=== PATIENT | male | born 1980 | race Caucasian/White ===

== ENCOUNTER 2016-06-13 09:45 | Emergency (ER) | payer SELFPAY ==
--- NOTE | 2016-06-13 10:02 | ER Document Report ---
ED Medical Screen (RME) - General Stated Complaint: CHEST PAIN Notes: Patient states he had chest pain last night which is resulted in her remaining chest tightness this morning. I greeted and performed a rapid initial assessment of this patient. Comprehensive ED assessment and evaluation of the patient, analysis of test results and completion of the medical decision making process will be conducted by additional ED providers. TRAVEL OUTSIDE OF THE [place] IN LAST 30 DAYS: No - Related Data Allergies/Adverse Reactions: No Known Allergies Allergy (Unverified 05/01/11 08:54) Past Medical History Past Surgical History: Reports: Hx Orthopedic Surgery - l elbow, r knee - Immunizations Hx Diphtheria, Pertussis, Tetanus Vaccination: Yes - 05/30/2008 Physical Exam - Vital signs Vitals: Temp Pulse Resp BP Pulse Ox 98.0 F 104 H 20 184/85 H 98 06/13/16 10:00 06/13/16 10:00 06/13/16 10:00 06/13/16 10:00 06/13/16 10:00 Course - Vital Signs Vital signs: Temp Pulse Resp BP Pulse Ox 98.0 F 104 H 20 184/85 H 98 06/13/16 10:00 06/13/16 10:00 06/13/16 10:00 06/13/16 10:00 06/13/16 10:00
--- NOTE | 2016-06-13 10:11 | EKG REPORT ---
SEVERITY:- NORMAL ECG - SINUS RHYTHM : Confirmed by: Alley Aguilar MD 13-Jun-2016 10:10:43
[2016-06-13] MEDS ORDERED: ASPIRIN 81 MG TABLET, CHEWABLE PO ONE (10:47)
[2016-06-13] MEDS ORDERED: NORMAL SALINE 1000 ML 1,000 ML IV ONE (10:48)
[2016-06-13 11:38] LABS: ABSOLUTE EOSINOPHILS # (AUTO) 0.1 10^3/uL (0.0-0.6); ABSOLUTE MONOCYTES (AUTO) 0.3 10^3/uL (0.1-1.4); ABSOLUTE NEUT (AUTO) 4.3 10^3/uL (1.7-8.2); BASOPHILS % (AUTO) 0.3 % (0-2); HEMOGLOBIN 13.5 g/dL (13.5-17.0); HGB HCT DIFFERENCE -2.5; LYMPHOCYTES % (AUTO) 29.5 % (13-45); MEAN CORPUSCULAR HEMOGLOBIN 25.4 pg (27.0-33.4); MEAN CORPUSCULAR HGB CONC 31.4 g/dL (32.0-36.0); MEAN CORPUSCULAR VOLUME 81 fl (80-97); MONOCYTES % (AUTO) 4.3 % (3-13); RED BLOOD COUNT 5.32 10^6/uL (4.35-5.55); RED CELL DISTRIBUTION WIDTH 14.3 % (11.5-14.0); SEGMENTED NEUTROPHILS % (AUTO) 64.9 % (42-78); WHITE BLOOD COUNT 6.6 10^3/uL (4.0-10.5)
[2016-06-13 11:42] LABS: APPEARANCE,URINE SLIGHTLY-CLOUDY; BILIRUBIN,URINE NEGATIVE (NEGATIVE); GLUCOSE, URINE NEGATIVE (NEGATIVE); KETONES,URINE NEGATIVE (NEGATIVE); LEUKOCYTE ESTERASE,URINE NEGATIVE (NEGATIVE); NITRITE,URINE NEGATIVE (NEGATIVE); PROTEIN,URINE NEGATIVE (NEGATIVE); URINE SPECIFIC GRAVITY 1.023; UROBILINOGEN,URINE NEGATIVE mg/dL (<2.0)
[2016-06-13 11:51] LABS: URINE BARBITURATES SCREEN NEGATIVE; URINE METHADONE SCREEN UNCONFIRMED POSITIVE; URINE PHENCYCLIDINE SCREEN NEGATIVE
[2016-06-13 12:02] LABS: ALANINE AMINOTRANSFERASE 36 U/L (21-72); ALBUMIN 3.9 g/dL (3.5-5.0); ALKALINE PHOSPHATASE 84 U/L (38-126); ANION GAP 13 (5-19); ASPARTATE AMINO TRANSFERASE 31 U/L (17-59); BILIRUBIN,TOTAL 0.3 mg/dL (0.2-1.3); BLOOD UREA NITROGEN 13 mg/dL (7-20); CALCIUM 9.7 mg/dL (8.4-10.2); CARBON DIOXIDE 28 mmol/L (22-30); CHLORIDE 99 mmol/L (98-107); CREATININE RESULT 0.78 mg/dL (0.52-1.25); GLUCOSE 193 mg/dL (75-110); SODIUM 140.3 mmol/L (137-145); TOTAL PROTEIN 7.4 g/dL (6.3-8.2)
--- NOTE | 2016-06-13 14:14 | ER Document Report ---
ED Cardiac - General Chief Complaint: Chest Pain Stated Complaint: CHEST PAIN Mode of Arrival: Ambulatory Information source: Patient Notes: 35-year-old male presents to the emergency department complaining of feeling of chest tightness, feeling like his heart is racing, and "jittery" reports onset of symptoms yesterday evening while he was eating supper. States episode improved during the night and began again this morning. Reports has been having similar episodes intermittently over the last month but states has not resolved since this morning. States usually when he has an episode he feels like his blood sugar is low, eats a candy bar, and symptoms resolve. Denies fever, chest pain, nausea or vomiting, diaphoresis, shortness of breath, recent illness or travel. TRAVEL OUTSIDE OF THE [place] IN LAST 30 DAYS: No - HPI Patient complains to provider of: Chest tightness, Palpitations Was the onset of pain: Sudden Quality of pain: Tightness Chest pain radiation location: None Severity now: None Severity at worst: Moderate Pain level currently: Denies Chest pain precipitating factors: At Rest Cardiac risk factors: None Positive cardiac history: No Similar symptoms previously: Yes Recently seen / treated by doctor: No - Related Data Allergies/Adverse Reactions: No Known Allergies Allergy (Verified 06/13/16 10:03) Past Medical History - General Information source: Patient - Social History Smoking Status: Never Smoker Chew tobacco use (# tins/day): No Frequency of alcohol use: None Drug Abuse: None Lives with: Family Family History: Reviewed & Not Pertinent Patient has suicidal ideation: No Patient has homicidal ideation: No - Medical History Medical History: Negative Renal/ Medical History: Denies: Hx Peritoneal Dialysis Past Surgical History: Reports: Hx Orthopedic Surgery - l elbow, r knee - Immunizations Hx Diphtheria, Pertussis, Tetanus Vaccination: Yes - 05/30/2008 Review of Systems - Review of Systems Constitutional: No symptoms reported EENT: No symptoms reported Cardiovascular: See HPI Respiratory: No symptoms reported Gastrointestinal: No symptoms reported Genitourinary: No symptoms reported Male Genitourinary: No symptoms reported Musculoskeletal: No symptoms reported Skin: No symptoms reported Hematologic/Lymphatic: No symptoms reported Neurological/Psychological: No symptoms reported -: Yes All other systems reviewed and negative Physical Exam - Vital signs Vitals: Temp Pulse Resp BP Pulse Ox 98.0 F 104 H 20 184/85 H 98 06/13/16 10:00 06/13/16 10:00 06/13/16 10:00 06/13/16 10:00 06/13/16 10:00 Interpretation: Normal - General General appearance: Appears well, Alert In distress: None - HEENT Head: Normocephalic, Atraumatic Eyes: Normal Pupils: PERRL - Respiratory Respiratory status: No respiratory distress Chest status: Nontender. No: Tender, Chest mass, Ecchymosis, No pleuritic chest pain, Pain on movement, Pain with cough, Pain with deep breathing, Wounds , Accessory muscle use, Prolonged expirations, Splinting, Other Breath sounds: Normal - CTAB Chest palpation: Normal - Cardiovascular Rhythm: Regular Heart sounds: Normal auscultation Murmur: No Pulses: Normal: Radial, Posterior tibial, Dorsalis pedis Normal capillary refill: Yes - Abdominal Inspection: Normal Distension: No distension Bowel sounds: Normal Tenderness: Nontender. No: Tender, McBurney's point, Ward's sign, Guarding, Rebound, Other Organomegaly: No organomegaly - Back Back: Normal, Nontender - Extremities General upper extremity: Normal inspection, Nontender, Normal color, Normal ROM , Normal strength, Normal temperature. No: Tender, Edema General lower extremity: Normal inspection, Nontender, Normal color, Normal ROM , Normal strength, Normal temperature, Normal weight bearing. No: Tender, Edema , [place]'s sign - Neurological Neuro grossly intact: Yes Cognition: Normal Orientation: AAOx4 Jessica Coma Scale Eye Opening: Spontaneous Jessica Coma Scale Verbal: Oriented [place] Coma Scale Motor: Obeys Commands [place] Coma Scale Total: 15 Speech: Normal Motor strength normal: LUE, RUE, LLE, RLE Sensory: Normal - Psychological Associated symptoms: Normal affect, Normal mood - Skin Skin Temperature: Warm Skin Moisture: Dry Skin Color: Normal Skin Turgor: Elastic Course - Re-evaluation Re-evalutation: 06/13/16 14:56 Patient hemodynamically stable, in no distress, afebrile. Tolerating oral fluids without difficulty or vomiting in the ED. Serum glucose and hemoglobin A1c elevated otherwise unremarkable labs including cardiac enzymes and d-dimer. Patient's symptoms likely due to mild hyperglycemia/undiagnosed early type II diabetes and he presents with atypical chest tightness and palpitations with symptoms not suggestive of pulmonary embolus, cardiac ischemia, aortic dissection, or other serious etiology. Given the extremely low risk of these diagnoses further testing and evaluation for these possibilities does not appear to be indicated at this time. Patient appears stable for discharge and agrees with home care, follow-up, and ED return precautions. Patient was given lengthy verbal and written instructions on lifestyle home interventions for diabetes as well as metformin use. Patient presentation, findings, ED care, and plan discussed with ED physician Dr. Joiner who concurs with evaluation and treatment. - Vital Signs Vital signs: Temp Pulse Resp BP Pulse Ox 98.0 F 104 H 20 119/78 98 06/13/16 10:00 06/13/16 10:00 06/13/16 15:01 06/13/16 15:01 06/13/16 15:01 Selected Entries 06/13/16 15:01 Heart Rate ( 63 Monitors) Respiratory 20 Rate Blood Pressure 119/78 Blood Pressure 91 Mean O2 Sat by Pulse 98 Oximetry - Laboratory Result Diagrams: 06/13/16 10:41 06/13/16 10:41 Laboratory results interpreted by me: 06/13/16 06/13/16 06/13/16 10:41 10:41 10:41 MCH 25.4 L MCHC 31.4 L RDW 14.3 H Glucose 193 H Hemoglobin A1c % 6.5 H Urine Blood 06/13/16 10:57 MCH MCHC RDW Glucose Hemoglobin A1c % Urine Blood SMALL H - Diagnostic Test Radiology reviewed: Image reviewed, Reports reviewed - EKG Interpretation by Me EKG shows normal: Sinus rhythm, [place], Intervals, QRS Complexes, ST-T Waves Rate: Normal Rhythm: NSR When compared to previous EKG there are: Previous EKG unavailable Discharge - Discharge Clinical Impression: Elevated blood sugar level, Palpitations Condition: Stable Disposition: HOME, SELF-CARE Instructions: Chest Pain of Unclear Cause ([facility]), Hyperglycemia ([facility]), Palpitations (Irregular or Rapid Heartrate) ([facility]), Diabetes ([facility]), Glucophage ( [facility]), Family Physicians / Practices Additional Instructions: Drink plenty of fluids, at least 2 liters of water per day. Follow-up with primary care provider this week. Return to the Emergency Department for any worsening symptoms or concerns. Prescriptions: Metformin HCl 500 mg PO DAILY #30 tablet Forms: Elevated Blood Pressure [facility] [NO LOCAL MD] - Follow up in 3-5 days
[2016-06-13 15:19] VITALS: BP 119/78
== END 2016-06-13 15:39 | disposition home or self-care (01) ==
LOC: ER 09:45
DX: R07.89 Other chest pain (principal); R00.2 Palpitations; R73.9 Hyperglycemia, unspecified
CPT/HCPCS: 93005; 99285; 96360; 36415; 82553; 82550; 85025; 80053; 81001; 84484; 80307; 83036; 85379; 71020; 93010; J7030

== ENCOUNTER 2017-07-21 07:18 | Emergency (ER) | payer SELFPAY ==
[2017-07-21] MEDS ORDERED: CYCLOBENZAPRINE HCL 10 MG TABLET PO ONE (07:48)
[2017-07-21] MEDS ORDERED: OXYCODONE-ACETAMINOPHEN 5-325 MG TABLET PO ONE (07:48)
[2017-07-21 08:22] LABS: APPEARANCE,URINE CLEAR; BILIRUBIN,URINE NEGATIVE (NEGATIVE); COLOR,URINE YELLOW; GLUCOSE, URINE NEGATIVE (NEGATIVE); KETONES,URINE NEGATIVE (NEGATIVE); LEUKOCYTE ESTERASE,URINE NEGATIVE (NEGATIVE); NITRITE,URINE NEGATIVE (NEGATIVE); PROTEIN,URINE NEGATIVE (NEGATIVE); URINE SPECIFIC GRAVITY 1.032; UROBILINOGEN,URINE NEGATIVE mg/dL (<2.0)
--- NOTE | 2017-07-21 08:55 | RADIOLOGY REPORT (SQ) ---
EXAM DESCRIPTION: U/S NON-OB PELVIS LTD W/O DOP COMPLETED DATE/TIME: 07/21/2017 8:38 am REASON FOR STUDY: pelvic/groin pain bilaterally, r/o hernia? inguina COMPARISON: None. TECHNIQUE: Dynamic and static grayscale images acquired of the localized site of clinical concern an d recorded on PACS. Additional selected color Doppler and spectral images recorded. SITE OF CONCERN: Inguinal regions LIMITATIONS: None. FINDINGS: SKIN AND SUBCUTANEOUS TISSUES: No masses. No fluid collections. No edema. No foreign calin s. DEEP SOFT TISSUES/MUSCLES: No masses. No fluid collections. No edema. VASCULAR: No increased or decreased vascularity. No occlusions. OTHER: No other significant finding. IMPRESSION: No anal hernia or other pathology identified. TECHNICAL DOCUMENTATION: JOB ID: [id number] [employer]- All Rights Reserved
--- NOTE | 2017-07-21 09:32 | RADIOLOGY REPORT (SQ) ---
EXAM DESCRIPTION: CT LTD RENAL STONE PROTOCOL ON COMPLETED DATE/TIME: 07/21/2017 9:14 am REASON FOR STUDY: hematuria, pelvic pain COMPARISON: None. TECHNIQUE: CT scan of the abdomen and pelvis performed without intravenous or oral contrast. Images reviewed with lung, soft tissue, and bone windows. Reconstructed coronal and sagittal MPR images revi ewed. All images stored on PACS. All CT scanners at this facility use dose modulation, iterative reconstruction, and/or weight based d osing when appropriate to reduce radiation dose to as low as reasonably achievable (ALARA). [facility]: Dose Right [facility]: CareDose [facility]: Dose Right [facility]: Teradose 4D [facility]: [employer] RADIATION DOSE: CT Rad equipment meets quality standard of care and radiation dose reduction techniq ues were employed. CTDIvol: 18.1 mGy. DLP: 1193 mGy-cm.mGy. LIMITATIONS: None. FINDINGS: LOWER CHEST: No significant findings. No nodules or infiltrates. NON-CONTRASTED LIVER, SPLEEN, ADRENALS: Evaluation limited by lack of IV contrast. No identified sign ificant masses. PANCREAS: No masses. No peripancreatic inflammatory changes. GALLBLADDER: No identified stones by CT criteria. No inflammatory changes to suggest cholecystitis. RIGHT KIDNEY AND URETER: No suspicious masses. Assessment limited by lack of IV contrast. No signif icant calcifications. No hydronephrosis or hydroureter. LEFT KIDNEY AND URETER: No suspicious masses. Assessment limited by lack of IV contrast. No signifi cant calcifications. No hydronephrosis or hydroureter. AORTA AND RETROPERITONEUM: No aneurysm. No retroperitoneal masses or adenopathy. BOWEL AND PERITONEAL CAVITY: No obvious masses or inflammatory changes. No free fluid. APPENDIX: Normal. PELVIS, BLADDER, AND ABDOMINAL WALL:No hernia identified. Limited visualization of the scrotal sac r eveals an asymmetrical density superior portion of the right scrotal sac. Unclear whether this repre sents testicle versus pathologic mass or fluid. Ultrasound the scrotum may be a consideration partic ularly based on clinical findings. BONES: No significant findings. OTHER: No other significant finding. IMPRESSION: No renal or bladder pathology. No hernia. Limited visualization of the scrotal sac rev eals an increase in density superior aspect of the right scrotum. See above discussion. Ultrasound of the scrotum may be a consideration. COMMENT: Quality ID # [id number]: Final reports with documentation of one or more dose reduction techniques (e.g., Automated exposure control, adjustment of the mA and/or kV according to patient size, use of iterative reconstruction technique) TECHNICAL DOCUMENTATION: JOB ID: [id number] [employer]- All Rights Reserved
--- NOTE | 2017-07-21 09:44 | ER Document Report ---
ED GI/ - General Chief Complaint: Groin Pain Stated Complaint: LOWER STOMACH PAIN Time Seen by Provider: 07/21/17 07:34 Mode of Arrival: Ambulatory Information source: Patient Notes: Patient is a 36-year-old male who presents to the ER today for 3 days of groin pain that radiates from the middle of his low abdomen into the tops of his thighs bilaterally. Patient denies any pain to the penis or scrotum, testicles. He denies any burning with urination, blood in his urine, low back pain, fever, chills. Patient strips hua for a living and states that he went to a different emergency department and I diagnosed him with a groin strain. They gave him muscle relaxers and pain medication which he did not get filled because he does not believe that this the problem. Patient has never had a kidney stone. He denies any penile discharge. He denies being worried about any STDs. He denies ever having hernia. TRAVEL OUTSIDE OF THE [place] IN LAST 30 DAYS: No - Related Data Allergies/Adverse Reactions: No Known Allergies Allergy (Verified 07/21/17 07:23) Past Medical History - General Information source: Patient - Social History Smoking Status: Unknown if Ever Smoked Family History: Reviewed & Not Pertinent Patient has suicidal ideation: No Patient has homicidal ideation: No Renal/ Medical History: Denies: Hx Peritoneal Dialysis Past Surgical History: Reports: Hx Orthopedic Surgery - l elbow, r knee - Immunizations Hx Diphtheria, Pertussis, Tetanus Vaccination: Yes - 05/30/2008 Review of Systems - Review of Systems Constitutional: No symptoms reported EENT: No symptoms reported Cardiovascular: No symptoms reported Respiratory: No symptoms reported Gastrointestinal: See HPI Genitourinary: No symptoms reported Male Genitourinary: See HPI Musculoskeletal: No symptoms reported Skin: No symptoms reported Hematologic/Lymphatic: No symptoms reported Neurological/Psychological: No symptoms reported Physical Exam - Vital signs Vitals: Temp Pulse Resp BP Pulse Ox 98.7 F 98 16 141/75 H 97 07/21/17 07:22 07/21/17 07:22 07/21/17 07:22 07/21/17 07:22 07/21/17 07:22 - Notes Notes: PHYSICAL EXAMINATION: GENERAL: Uncomfortable appearing, but in no acute distress. HEAD: Atraumatic, normocephalic. EYES: Pupils equal round and reactive to light, extraocular movements intact, sclera anicteric, conjunctiva are normal. NECK: Normal range of motion, supple without lymphadenopathy LUNGS: CTAB and equal. No wheezes rales or rhonchi. HEART: Regular rate and rhythm without murmurs ABDOMEN: Soft, no tenderness. No hernia appreciated with coughing, no guarding , no rebound BACK: no vertebral tenderness, normal ROM scrotal/penile: no discharge, no erythema or edema, no tenderness GI/: no CVA tenderness EXTREMITIES: Normal range of motion, no pitting edema. No cyanosis. NEUROLOGICAL: Cranial nerves grossly intact. Normal sensory/motor exams. PSYCH: Normal mood, normal affect. SKIN: Warm, Dry, normal turgor, no rashes or lesions noted Course - Re-evaluation Re-evalutation: 07/21/17 10:18 Limited abdominal ultrasound to rule out hernia reports no appreciated hernia. There is hematuria on urinalysis today, moderate, because of this CT renal protocol was ordered and did not note any CAT scan but does report some increased density in the superior aspect of the right scrotum. Patient declines any more ultrasounds today although I advised ultrasound of the scrotum at this time. Patient would just like to go home. He had no scrotal pain on exam, no erythema or edema, he is afebrile with normal vital signs today with no penile discharge. I will start him on doxycycline to treat for possible epididymitis and he received Rocephin injection here in the emergency department. Patient is happy with this plan and does understand that if symptoms do not resolve or worsen that he is to follow-up with primary care provider or come back to the ER. 07/21/17 10:19 - Vital Signs Vital signs: Temp Pulse Resp BP Pulse Ox 98.7 F 98 16 141/75 H 97 07/21/17 07:22 07/21/17 07:22 07/21/17 07:22 07/21/17 07:22 07/21/17 07:22 - Laboratory Laboratory results interpreted by me: 07/21/17 07:56 Urine Blood MODERATE H Discharge - Discharge Clinical Impression: probable epididymitis Groin pain Qualifiers: Laterality: unspecified laterality Qualified Code(s): R10.30 - Lower abdominal pain, unspecified Condition: Stable Disposition: HOME, SELF-CARE Instructions: Epididymitis ([facility]) Additional Instructions: Return immediately for any new or worsening symptoms. Follow up with primary care provider, call tomorrow to make followup appointment. Prescriptions: Doxycycline Monohydrate 100 mg PO BID #14 tablet Forms: Return to Work
[2017-07-21] MEDS ORDERED: CEFTRIAXONE INJ 250 MG VIAL IM ONE (09:48)
[2017-07-21] MEDS ORDERED: LIDOCAINE 1% INJ-PF (10 MG/ML) 30 ML SDV INJ ONE (09:48)
[2017-07-21 10:45] VITALS: BP 135/80
== END 2017-07-21 10:45 | disposition home or self-care (01) ==
LOC: ER 07:18
DX: R10.30 Lower abdominal pain, unspecified (principal); R31.9 Hematuria, unspecified
CPT/HCPCS: 99284; 96372; 81001; 76857; 76380; J3490; J0696